=== PATIENT | male | born 1995 | race Caucasian/White ===

== ENCOUNTER 2022-04-08 05:54 | Inpatient (IN) | payer SELFPAY ==
[2022-04-08] MEDS ORDERED: NALOXONE HCL 2 MG/2 ML VIAL ONE (06:04)
[2022-04-08] MEDS ORDERED: propofoL 1,000 MG/100 ML VIAL IV ONE (06:07)
[2022-04-08] MEDS ORDERED: NA CHLORIDE 0.9% 1,000 ML ONE (06:07)
[2022-04-08] MEDS ORDERED: VECURONIUM 10 MG/VIAL IV ONE (06:07)
[2022-04-08 06:36] LABS: Arterial Blood Carboxyhemoglob 1.5 % (0-1.5); Blood Gas Oxyhemoglobin 96.4 % (94-97)
--- NOTE | 2022-04-08 06:43 | ER ---
Nurse's Notes [facility] Name: Jerry Mcelroy Age: 28 yrs Sex: Male : 10/05/1993 Arrival Date: 04/08/2022 Time: 06:00 Bed 2 Private MD: Diagnosis: Acute respiratory failure;Hypoxemia;Abuse of other non-psychoactive substances-OVERDOSE;Hypokalemia;Adverse effect of benzodiazepines;Adverse effect of amphetamines Presentation: 04/08 06:06 Chief complaint: pt brought by POV unresponsive, agonal respirations, cyanotic, person bb who brought him states pt overdosed on either heroin or fentanyl. Coronavirus screen: unable to determine. Ebola Screen: Unable to complete the Ebola screening because: Patient is unresponsive. 06:06 Method Of Arrival: Other bb 06:08 Initial Sepsis Screen: Does the patient meet any 2 criteria? No. Patient's initial bb sepsis screen is negative. Does the patient have a suspected source of infection? No. Patient's initial sepsis screen is negative. Risk Assessment: Do you want to hurt yourself or someone else? Unable to obtain. Onset of symptoms is unknown. 06:08 Acuity: WILLIAM 1 bb Triage Assessment: 06:00 General: Appears distressed. as6 06:00 Pain: Unable to use pain scale. Patient is unresponsive. as6 Historical: - Allergies: 07:25 Unable to obtain; as6 - Home Meds: 07:25 Unable to obtain [Active]; as6 - PMHx: 07:25 Unable to Obtain; as6 - PSHx: 07:25 Unable to Obtain; as6 - Immunization history:: Adult Immunizations unknown. - Family history:: not pertinent. - Social history:: Smoking status: unknown. Screenin:37 Abuse screen: Denies threats or abuse. Denies injuries from another. Nutritional as6 screening: No deficits noted. Tuberculosis screening: No symptoms or risk factors identified. Fall Risk None identified. Assessment: 06:00 General: Behavior is unresponsive. Neuro: Level of Consciousness is unresponsive. as6 Respiratory: Respiratory pattern is agonal. Respiratory:. Derm: Skin is pale. Derm: Skin is diaphoretic, Skin is. 06:22 General: during central line and Yee placement pt became restless and combative. vec as6 given. 07:30 General: Behavior is Sedated and intubated. Neuro: Morse Agitation-Sedation Scale jl7 (RASS): -2 Light sedation Level of Consciousness is sedated. Pupils are Pupil Size: 2 mm non-reactive. Cardiovascular: Heart tones S1 S2 present Patient's skin is warm and dry. Rhythm is sinus rhythm. Respiratory: Airway via oral intubation Ventilator assessment: ET Tube: 7.5 23 cm at gum line. Ventilator Mode: Assist Control (AC) Tidal Volume: 500 Respiratory Rate: 16 FiO2: 28% PEEP: 5 HOB > 30 degrees. Breath sounds are clear bilaterally. GI: Oral gastric tube in place, to suction. : Yee in place Urine is cloudy. Derm: Skin is dry, Skin is pink, Skin temperature is cool. 08:00 Reassessment: No changes from previously documented assessment. Neuro: Morse jl7 Agitation-Sedation Scale (RASS): -2 Light sedation. 09:00 Reassessment: No changes from previously documented assessment. jl7 09:30 Reassessment: Dr. Weston at bedside, reports orders will be put in for ICU admission jl7 once he goes up. 11:00 Neuro: Morse Agitation-Sedation Scale (RASS): -2 Light sedation. jl7 Vital Signs: 06:00 Pulse 114; Resp 4; Pulse Ox 55% on R/A; bb 06:08 BP 141 / 90; Pulse 121; Resp 27 A; Pulse Ox 100% on 15% BVM; bb 06:30 BP 125 / 75; Pulse 99; Resp 16 A; Temp 97.2(C); Pulse Ox 100% on 70% FiO2 ETT vent; as6 06:37 Weight 99.79 kg; as6 07:10 BP 113 / 70; Pulse 83; Resp 16 A; Pulse Ox 100% on ETT vent; jl7 07:30 BP 101 / 68; Pulse 85; Resp 16; Temp 95.2; Pulse Ox 100% on ETT vent; jl7 07:45 BP 104 / 65; Pulse 84; Resp 16; Pulse Ox 99% ; jl7 08:00 BP 102 / 66; Pulse 81; Resp 16 A; Temp 94.8(C); Pulse Ox 99% on 28% FiO2 ETT vent; jl7 08:15 BP 101 / 66; Pulse 76; Resp 16; Pulse Ox 99% ; jl7 08:30 BP 103 / 68; Pulse 74; Resp 16; Pulse Ox 97% ; jl7 08:45 BP 101 / 69; Pulse 74; Resp 16; Pulse Ox 97% ; jl7 09:00 BP 101 / 66; Pulse 74; Resp 16 A; Temp 94.7(C); Pulse Ox 97% on 28% FiO2 ETT vent; jl7 09:15 BP 104 / 67; Pulse 72; Resp 16; Pulse Ox 97% ; jl7 09:30 BP 103 / 68; Pulse 72; Resp 16; Pulse Ox 97% ; jl7 09:45 BP 104 / 67; Pulse 72; Resp 16; Pulse Ox 97% ; jl7 10:00 BP 103 / 69; Pulse 72; Resp 16 A; Temp 95(C); Pulse Ox 97% on 28% FiO2 ETT vent; jl7 10:15 BP 102 / 68; Pulse 71; Resp 16; Pulse Ox 97% ; jl7 10:30 BP 105 / 71; Pulse 70; Resp 16; Pulse Ox 98% ; jl7 10:45 BP 104 / 71; Pulse 70; Resp 16; Pulse Ox 98% ; jl7 11:00 BP 105 / 71; Pulse 72; Resp 16 S; Temp 95.5(C); Pulse Ox 99% on 28% FiO2 ETT vent; jl7 ED Course: 05:58 Inserted saline lock: 18 gauge in right antecubital area, using aseptic technique. as6 ,using aseptic technique. By Mariella Bartlett RN. 05:59 Assisted provider with intubation using 7.5 mm ETT via oral route. ET tube secured at bb 24cm at the lips. Intubated by Albert Rodas MD Placement verified by CO2 detector w/ + color change, auscultating bilateral breath sounds, CXR, Patient tolerated well. 06:00 Patient arrived in ED. wm 06:00 Arm band placed on Patient placed in an exam room, on a stretcher, on oxygen, on bb animal anatomist, on pulse oximetry, Dr Rodas at bedside for intubation. 06:09 Triage completed. bb 06:23 Sheldon Swann, RENEA is Primary Nurse. as6 06:26 Albert Rodas MD is Attending Physician. renetta 06:27 Yee cath inserted, using sterile technique, 18 Fr., by ky, balloon inflated, to as6 gravity drainage, urine specimen collected. 06:27 Assisted provider with central line placement. Set up central line tray. Triple lumen as6 line placed in right femoral. Line placed by Albert Rodas MD Placement verified by blood return, Dressed with Tegaderm, Blood was collected. 06:37 Placed in gown. Bed in low position. Call light in reach. Side rails up X2. Client as6 placed on continuous cardiac and pulse oximetry monitoring. NIBP monitoring applied. 06:41 Laxmi Junior MD is Hospitalizing Provider. renetta 06:51 XRAY Chest (1 view) In Process Unspecified. EDMS 07:00 Initial lab(s) drawn, by ED staff, sent to lab. jl7 07:07 Andrew Weston MD is Hospitalizing Provider. renetta 07:12 CT Head Brain wo Cont In Process Unspecified. EDMS 08:30 Thermoregulation: Ann blanket applied. jl7 08:30 COVID swab sent to lab. jl7 11:25 Patient admitted, IV remains in place. intact, No redness/swelling at site. 7 Administered Medications: 05:58 Drug: NARcan (naloxone) 2 mg Route: IVP; Site: right antecubital; 06:20 Drug: NS 0.9% 1000 ml Route: IV; Rate: 1 bolus; Site: right antecubital; as6 07:00 Follow up: Response: No adverse reaction; IV Status: Completed infusion; IV Intake: jl7 1000ml 06:23 Drug: VecuroNIUM 10 mg Route: IVP; Site: right antecubital; as6 06:25 Drug: Propofol 5 mcg/kg/min {Note: starting rate 20.} Route: IV; Rate: calculated rate; as6 Site: right antecubital; 07:00 Follow up: Response: RASS: Light sedation (-2) 7 11:04 Follow up: Response: RASS: Light sedation (-2); IV Status: Infusion continued upon 7 admission 07:39 Drug: Zosyn (piperacillin-tazobactam) 3.375 grams Route: IVPB; Infused Over: 60 mins; 7 Site: right femoral; 08:39 Follow up: IV Status: Completed infusion; IV Intake: 100ml 08:31 Drug: Potassium Chloride 20 mEq Route: IV; Rate: per protocol; Site: right femoral; jl7 10:30 Follow up: Response: No adverse reaction; IV Status: Completed infusion jl7 08:31 Drug: Potassium Chloride 20 mEq Route: IV; Rate: per protocol; Site: right femoral; jl7 08:31 Drug: NS 0.9% with KCl 20 mEq/L 1000 ml Route: IV; Rate: 125 ml/hr; Site: right femoral;jl7 11:03 Follow up: Response: No adverse reaction; IV Status: Infusion continued upon admission jl7 Medication: 08:53 VIS not applicable for this client. jl7 Intake: 07:00 IV: 1000ml; Total: 1000ml. jl7 08:39 IV: 100ml; Total: 1100ml. jl7 Outcome: 06:42 Decision to Hospitalize by Provider. renetta 11:24 Admitted to ICU accompanied by nurse, via stretcher, room 1, with oxygen, on monitor, jl7 with chart, Report called to RENEA Dick 11:24 critical 11:24 Discharge instructions given to Pt intubated and sedated 12:03 Patient left the ED. jl7 Signatures: Dispatcher [employer] EDMS Albert Rodas MD MD cha Ballard, Brenda, RN RN Carly Harding RN RN Afsaneh Leo Ashby, RN RN as6 Corrections: (The following items were deleted from the chart) 07:23 05:58 Inserted saline lock: 20 gauge in right antecubital area, using aseptic as6 technique. ,using aseptic technique. By Mariella frankel
--- NOTE | 2022-04-08 06:43 | EDPHYS ---
Physician Documentation [facility] Name: Jerry Mcelroy Age: 28 yrs Sex: Male : 10/05/1993 Arrival Date: 04/08/2022 Time: 06:00 Bed 2 Private MD: ED Physician Albert Rodas HPI: 04/08 06:37 This 28 yrs old Male presents to ER via Other with complaints of UNRESPONSIVE renetta , OD. 06:37 OVERDOSE. The patient has experienced syncope, lost consciousness. Onset: The renetta symptoms/episode began/occurred just prior to arrival. Duration: This was a single episode, that is still ongoing. Context: the episode(s) was witnessed, by a friend. Associated injury: The patient did not suffer any apparent associated injury. Associated signs and symptoms: Pertinent positives: APNEA. Current symptoms: UNRESPONSIVE. Severity of symptoms: At their worst the symptoms were incapacitating just prior to arrival, in the emergency department the symptoms UNRESPONSIVE , SATS 50 , PULSE WEAK, CYANOSIS. Historical: - Allergies: 07:25 Unable to obtain; as6 - Home Meds: 07:25 Unable to obtain [Active]; as6 - PMHx: 07:25 Unable to Obtain; as6 - PSHx: 07:25 Unable to Obtain; as6 - Immunization history:: Adult Immunizations unknown. - Family history:: not pertinent. - Social history:: Smoking status: unknown. ROS: 06:37 Unable to obtain ROS due to obtunded state. renetta Exam: 06:37 Constitutional: This is a well developed, well nourished patient who is awake, alert, renetta and in no acute distress. Head/Face: Normocephalic, atraumatic. 06:37 Cardiovascular: Rate: tachycardic, actual rate is 120 bpm, Rhythm: regular, Pulses: Pulses are 3+ in bilateral radial, brachial, femoral, popliteal, posterior tibial and and dorsalis pedis arteries.. Heart sounds: normal, Edema: is not appreciated, JVD: is not appreciated. 06:37 Neuro: Orientation: unable to test, Mentation: unable to test, Memory: unable to test, Cranial nerves: unable to test, Cerebellar function: unable to test, Motor: unable to test, Sensation: unable to test, Gait: not tested. Babinski testing is not performed, seizure activity, is not displayed by the patient. 06:52 ECG was reviewed by the Attending Physician. renetta Vital Signs: 06:00 Pulse 114; Resp 4; Pulse Ox 55% on R/A; bb 06:08 BP 141 / 90; Pulse 121; Resp 27 A; Pulse Ox 100% on 15% BVM; bb 06:30 BP 125 / 75; Pulse 99; Resp 16 A; Temp 97.2(C); Pulse Ox 100% on 70% FiO2 ETT vent; as6 06:37 Weight 99.79 kg; as6 07:10 BP 113 / 70; Pulse 83; Resp 16 A; Pulse Ox 100% on ETT vent; jl7 07:30 BP 101 / 68; Pulse 85; Resp 16; Temp 95.2; Pulse Ox 100% on ETT vent; jl7 07:45 BP 104 / 65; Pulse 84; Resp 16; Pulse Ox 99% ; jl7 08:00 BP 102 / 66; Pulse 81; Resp 16 A; Temp 94.8(C); Pulse Ox 99% on 28% FiO2 ETT vent; jl7 08:15 BP 101 / 66; Pulse 76; Resp 16; Pulse Ox 99% ; jl7 08:30 BP 103 / 68; Pulse 74; Resp 16; Pulse Ox 97% ; jl7 08:45 BP 101 / 69; Pulse 74; Resp 16; Pulse Ox 97% ; jl7 09:00 BP 101 / 66; Pulse 74; Resp 16 A; Temp 94.7(C); Pulse Ox 97% on 28% FiO2 ETT vent; jl7 09:15 BP 104 / 67; Pulse 72; Resp 16; Pulse Ox 97% ; jl7 09:30 BP 103 / 68; Pulse 72; Resp 16; Pulse Ox 97% ; jl7 09:45 BP 104 / 67; Pulse 72; Resp 16; Pulse Ox 97% ; jl7 10:00 BP 103 / 69; Pulse 72; Resp 16 A; Temp 95(C); Pulse Ox 97% on 28% FiO2 ETT vent; jl7 10:15 BP 102 / 68; Pulse 71; Resp 16; Pulse Ox 97% ; jl7 10:30 BP 105 / 71; Pulse 70; Resp 16; Pulse Ox 98% ; jl7 10:45 BP 104 / 71; Pulse 70; Resp 16; Pulse Ox 98% ; jl7 11:00 BP 105 / 71; Pulse 72; Resp 16 S; Temp 95.5(C); Pulse Ox 99% on 28% FiO2 ETT vent; jl7 Procedures: 06:46 Central Line: the site was prepped with Betadine, in sterile fashion, a triple lumen renetta catheter was inserted, in the right in 3 attempts. placement was verified, by blood return, the site was dressed with Tegaderm, the patient tolerated the procedure, well. 06:47 Intubation: Ventilated with 100% NRB prior to procedure. Intubated orally using # 4 renetta Miladis blade with 7.5 mm ETT. was successful on first attempt. Ventilated with Ambu bag. Cricoid pressure applied during procedure. Tube secured at right side of mouth measured 23 cm at lip. Placement verified by CXR, CO2 detector with (+) color change, auscultating bilateral breath sounds, O2 saturation after procedure was 100 %. Patient tolerated well. MDM: 06:26 Patient medically screened. renetta 06:46 Differential Diagnosis altered mental status, sepsis. Differential Diagnosis: cardiac renetta arrhythmia, cerebrovascular accident, drug effect, seizure, sepsis, transient ischemic attack, vasovagal episode. Data reviewed: vital signs, nurses notes, lab test result(s), EKG, radiologic studies, CT scan, plain films. Data interpreted: ingot supervisor: rate is 121 beats/min, rhythm is regular, Pulse oximetry: on room air is 100 %. Test interpretation: by ED physician or midlevel provider: ECG, plain radiologic studies. Counseling: I had a detailed discussion with the patient and/or guardian regarding: the historical points, exam findings, and any diagnostic results supporting the discharge/admit diagnosis, lab results, radiology results, the need for further work-up and treatment in the hospital. 04/08 06:23 Order name: Acetaminophen; Complete Time: 07:58 04/08 06:23 Order name: CBC with Diff; Complete Time: 07:32 04/08 06:23 Order name: ETOH Level; Complete Time: 07:58 04/08 06:23 Order name: PT-INR; Complete Time: 07:32 04/08 06:23 Order name: Ptt, Activated; Complete Time: 07:32 04/08 06:23 Order name: Salicylate; Complete Time: 08:40 04/08 06:23 Order name: Urine Drug Screen; Complete Time: 07:32 as6 04/08 06:23 Order name: Blood Culture Adult (2) as6 04/08 06:23 Order name: CBC with Diff as6 04/08 06:23 Order name: CMP; Complete Time: 07:58 as6 04/08 06:23 Order name: Lactate; Complete Time: 07:58 as6 04/08 06:23 Order name: Protime (+inr) as6 04/08 06:23 Order name: Ptt, Activated as6 04/08 06:31 Order name: Magnesium; Complete Time: 08:40 [facility] 04/08 06:31 Order name: NT PRO-BNP; Complete Time: 08:40 [facility] 04/08 06:31 Order name: Troponin HS; Complete Time: 08:40 [facility] 04/08 06:31 Order name: XRAY Chest (1 view); Complete Time: 07:32 [facility] 04/08 06:31 Order name: ABG; Complete Time: 06:52 [facility] 04/08 06:31 Order name: SARS-COV-2 RT PCR (Document "Date of Onset" if Symptomatic) [facility] 04/08 06:31 Order name: CT Head Brain wo Cont; Complete Time: 07:32 [facility] 04/08 06:34 Order name: ABG Arterial Blood Gas EDMS 04/08 06:39 Order name: Bilirubin Direct; Complete Time: 07:58 EDMS 04/08 07:53 Order name: ABG Arterial Blood Gas EDMS 04/08 07:53 Order name: ABG Arterial Blood Gas EDMS 04/08 07:53 Order name: Chest Single View EDMS 04/08 07:53 Order name: Chest Single View EDMS 04/08 11:11 Order name: Lactate Sepsis 2 HR Follow-up EDMS 04/08 06:23 Order name: EKG; Complete Time: 06:24 as6 04/08 06:23 Order name: EKG - Nurse/Tech; Complete Time: 06:57 as6 04/08 06:23 Order name: IV Saline Lock; Complete Time: 06:57 as04/08 06:23 Order name: Labs collected and sent; Complete Time: 06:57 as6 04/08 06:23 Order name: Urine Dipstick-Ancillary (obtain specimen); Complete Time: 07:27 04/08 06:23 Order name: Accucheck; Complete Time: 06:56 04/08 06:23 Order name: Cardiac monitoring; Complete Time: 06:35 04/08 06:23 Order name: Cath; Complete Time: 06:35 04/08 06:23 Order name: EKG - Nurse/Tech; Complete Time: 06:56 04/08 06:23 Order name: IV Saline Lock - Large Bore; Complete Time: 06:35 04/08 06:23 Order name: Labs collected and sent; Complete Time: 06:35 04/08 06:23 Order name: O2 Per Protocol; Complete Time: 06:35 04/08 06:23 Order name: O2 Sat Monitoring; Complete Time: 06:35 04/08 07:53 Order name: Respiratory Therapy Consult EDMS EC:52 Rate is 92 beats/min. Rhythm is regular. QRS [place] is Normal. IN interval is normal. QRS renetta interval is normal. QT interval is prolonged at 396 msec. No Q waves. T waves are Normal. No ST changes noted. Clinical impression: NSR w/ Non-specific ST/T Changes and No evidence of ischemia. Interpreted by me. Reviewed by me. Administered Medications: 05:58 Drug: NARcan (naloxone) 2 mg Route: IVP; Site: right antecubital; 06:20 Drug: NS 0.9% 1000 ml Route: IV; Rate: 1 bolus; Site: right antecubital; as6 07:00 Follow up: Response: No adverse reaction; IV Status: Completed infusion; IV Intake: jl7 1000ml 06:23 Drug: VecuroNIUM 10 mg Route: IVP; Site: right antecubital; as6 06:25 Drug: Propofol 5 mcg/kg/min {Note: starting rate 20.} Route: IV; Rate: calculated rate; as6 Site: right antecubital; 07:00 Follow up: Response: RASS: Light sedation (-2) jl7 11:04 Follow up: Response: RASS: Light sedation (-2); IV Status: Infusion continued upon jl7 admission 07:39 Drug: Zosyn (piperacillin-tazobactam) 3.375 grams Route: IVPB; Infused Over: 60 mins; 7 Site: right femoral; 08:39 Follow up: IV Status: Completed infusion; IV Intake: 100ml jl7 08:31 Drug: Potassium Chloride 20 mEq Route: IV; Rate: per protocol; Site: right femoral; jl7 10:30 Follow up: Response: No adverse reaction; IV Status: Completed infusion jl7 08:31 Drug: Potassium Chloride 20 mEq Route: IV; Rate: per protocol; Site: right femoral; jl7 08:31 Drug: NS 0.9% with KCl 20 mEq/L 1000 ml Route: IV; Rate: 125 ml/hr; Site: right femoral;jl7 11:03 Follow up: Response: No adverse reaction; IV Status: Infusion continued upon admission jl7 Disposition Summary: 04/08/22 06:42 Hospitalization Ordered Hospitalization Status: Inpatient Admission renetta Location: Intensive Care Unit renetta Condition: Guarded renetta Problem: new renetta Symptoms: have improved renetta Bed/Room Type: Standard renetta Provider: Andrew Weston(04/08/22 07:07) renetta Room Assignment: 1-(04/08/22 10:14) eb Diagnosis - Acute respiratory failure renetta - Hypoxemia renetta - Abuse of other non-psychoactive substances - OVERDOSE renetta - Hypokalemia renetta - Adverse effect of benzodiazepines renetta - Adverse effect of amphetamines renetta Forms: - Medication Reconciliation Form renetta - SBAR form renetta Signatures: Dispatcher [employer] EDAlbert Jeffries MD MD cha Ballard, Brenda, RN RN Carly Harding RN RN jl7 Sheryl Rai Ashby, RN RN as6 Corrections: (The following items were deleted from the chart) 06:25 06:24 BASIC METABOLIC PANEL+C.LAB.BRZ ordered. EDMS EDMS 06:33 06:32 BASIC METABOLIC PANEL+C.LAB.BRZ ordered. EDMS EDMS 06:39 06:24 HEPATIC FUNCTION+C.LAB.BRZ ordered. EDMS EDMS 06:56 06:23 Suicide Screening ([place]) ordered. as6 as 07:07 06:42 Laxmi Junior cha [facility] 10:14 06:42 renetta gutierrez
[2022-04-08] MEDS ORDERED: PIPERACIL/TAZO 3.375 GM VIAL IV ONE (06:47)
[2022-04-08] MEDS ORDERED: NA CHLORIDE 0.9% 100 ML ONE (06:47)
[2022-04-08 06:59] LABS: Barbiturates NEGATIVE (NEGATIVE); Benzodiazepines POSITIVE (NEGATIVE); Cocaine NEGATIVE (NEGATIVE); METHAMPHETAM POSITIVE (NEGATIVE); Methadone NEGATIVE (NEGATIVE); Opiates POSITIVE (NEGATIVE); Phencyclidine NEGATIVE (NEGATIVE); THC Cannibis POSITIVE (NEGATIVE)
[2022-04-08 07:13] LABS: Absolute Lymphocytes (CBC) 0.7 K/uL (0.7-4.9); Hematocrit 37.2 % (39.6-49.0); Lymphocytes % 21.7 % (15.3-44.8); MCV 94.3 fL (80-100); MPV 7.9 fL (7.6-11.3); RBC Red Blood Cell Count 3.94 M/uL (4.33-5.43)
--- NOTE | 2022-04-08 07:24 | RAD REPORT ---
EXAM DESCRIPTION: CT - Head Brain Wo Cont - 04/08/2022 7:10 am CLINICAL HISTORY: Mental status change, unknown cause COMPARISON: No comparisons TECHNIQUE: Axial 5 mm thick images of the head were obtained without IV contrast. All CT scans are performed using dose optimization technique as appropriate and may include automated exposure control or mA/KV adjustment according to patient size. FINDINGS: No intracranial hemorrhage, mass, edema or shift of mid-line structures. No acute infarcti on changes seen. No abnormal extra-axial fluid collections. Ventricles are normal. Physiologic calcif ications are present. Mastoid air cells and visualized portions of the paranasal sinuses are clear. No acute bony findings. IMPRESSION: Negative non-contrast CT head examination.
--- NOTE | 2022-04-08 07:25 | RAD REPORT ---
EXAM DESCRIPTION: RAD - Chest Single View - 04/08/2022 6:49 am CLINICAL HISTORY: COUGHoverdose, shortness of breath, altered mental status COMPARISON: None TECHNIQUE: AP portable chest image was obtained 04/08/2022 6:49 am in supine position. FINDINGS: Endotracheal tube is in good position mid aortic arch level 3 cm above the cynthia. NG/OG t ube is curled in the stomach. No pulmonary edema, aspiration pneumonia or acute lung parenchymal process seen. Heart and vasculature are normal. No measurable pleural effusion and no pneumothorax. No acute bony a bnormality seen. No acute aortic findings suspected. IMPRESSION: No acute cardiopulmonary process. ET tube and NG tube are in good position.
[2022-04-08 07:30] LABS: Protime INR 1.18
[2022-04-08 07:44] LABS: AST/SGOT 203 U/L (15-37); Albumin 3.1 g/dL (3.4-5.0); Alkaline Phosphatase 71 U/L (45-117); BUN Blood Urea Nitrogen 13 mg/dL (7-18); Bicarbonate 24 mmol/L (21-32); Bilirubin Direct 0.2 mg/dL (0-0.2); Bilirubin Total 0.4 mg/dL (0.2-1.0); Glomerular Filtration Rate 72 ml/min (=/>90); Glucose Level 235 mg/dL (74-106); Sodium Level 138 mmol/L (136-145)
[2022-04-08 07:46] LABS: ALT/SGPT 308 U/L (12-78); Potassium 2.7 mmol/L (3.5-5.1)
[2022-04-08] MEDS ORDERED: NA CHLORIDE 0.9% 250 ML IV PRN (07:49)
[2022-04-08 08:01] LABS: Magnesium 2.3 mg/dL (1.8-2.4); Troponin High Sensitivity 6.9 pg/mL (<58.9)
[2022-04-08] MEDS ORDERED: NS KCL 20MEQ 1,000 ML IV ONE (08:12)
[2022-04-08] MEDS ORDERED: KCL 20 MEQ/100 mL IVPB 200 ML IV ONE (08:13)
[2022-04-08] MEDS: propofoL 1,000 MG/100 ML VIAL IV PRN ×2 (11:47→12:05)
[2022-04-08] MEDS: HALOPERIDOL LACT 5 MG/ML INJ IV PRN ×2 (12:19→19:35)
[2022-04-08] MEDS: LORazepam 2 MG/ML VIAL IV PRN ×4 (12:19→22:15)
--- NOTE | 2022-04-08 13:03 | RAD REPORT ---
EXAM DESCRIPTION: RAD - Chest Single View - 04/08/2022 12:40 pm CLINICAL HISTORY: ET TUBE PLACEMENT COMPARISON: Portable April 08 TECHNIQUE: AP portable chest image was obtained 04/08/2022 12:40 pm . FINDINGS: Endotracheal tube mid aortic arch level, good positioning. NG/OG tube remains curled in th e stomach. No pulmonary edema, aspiration pneumonia or acute lung parenchymal process. Heart and vasculature are normal. No measurable pleural effusion and no pneumothorax. No acute bony abnormality seen. Resuscit ation paddle overlies the upper left chest. IMPRESSION: No pulmonary edema, aspiration pneumonia or other acute lung parenchymal process. Endotracheal tube and NG/OG tube remain in good position.
[2022-04-08] MEDS: NA CHLORIDE 0.9% 1,000 ML IV SCH ×2 (13:58→21:00)
[2022-04-08 17:31] LABS: Potassium 3.5 mmol/L (3.5-5.1)
[2022-04-08] MEDS ORDERED: KCL 20 MEQ/100 mL IVPB 20 MEQ/100 ML BAG IV SCH (19:00)
[2022-04-09] MEDS: NA CHLORIDE 0.9% 1,000 ML IV SCH ×2 (01:04→10:14)
[2022-04-09] MEDS: LORazepam 2 MG/ML VIAL IV PRN ×2 (02:10→04:20)
[2022-04-09] MEDS: HALOPERIDOL LACT 5 MG/ML INJ IV PRN (05:00)
[2022-04-09 05:21] LABS: Absolute Lymphocytes (CBC) 2.2 K/uL (0.7-4.9); Hematocrit 39.1 % (39.6-49.0); Lymphocytes % 22.7 % (15.3-44.8); MCV 93.3 fL (80-100); MPV 8.1 fL (7.6-11.3); RBC Red Blood Cell Count 4.19 M/uL (4.33-5.43)
[2022-04-09 05:33] LABS: Bilirubin Direct 0.2 mg/dL (0-0.2); Bilirubin Total 0.5 mg/dL (0.2-1.0); Magnesium 2.3 mg/dL (1.8-2.4); Phosphorus 1.8 mg/dL (2.5-4.9); Potassium 3.3 mmol/L (3.5-5.1); Protein, Total 6.3 g/dL (6.4-8.2)
--- NOTE | 2022-04-09 07:13 | RAD REPORT ---
EXAM DESCRIPTION: RAD - Chest Single View - 04/09/2022 6:16 am CLINICAL HISTORY: resp failure COMPARISON: April 08 TECHNIQUE: AP portable chest image was obtained 04/09/2022 6:16 am . FINDINGS: Endotracheal tube tip is top of the aortic arch 4-5 cm above the cynthia. Positioning is st able. NG tube extends below the diaphragm, off the field of view. Lung volumes are low. There is some minimal stranding in the left lung base. This is not substantiall y different from prior imaging but can be monitored for developing infiltrate. Resuscitation paddles overlie the chest. Heart size is normal. No measurable pleural effusion and no pneumothorax. IMPRESSION: Stable positioning of the ET tube and NG tube. Low lung volume examination shows accentuated basilar lung markings. This is probably atelectasis but can be monitored for developing infiltrate.
--- NOTE | 2022-04-09 07:50 | P.HP ---
Certification for Inpatient With expected LOS: >2 Midnights Practitioner: I am a practitioner with admitting privileges, knowledge of patient current condition, hospital course, and medical plan of care. Services: Services provided to patient in accordance with Admission requirements found in Title 42 Section 412.3 of the Code of Federal Regulations Patient History Date of Service: 04/09/22 Reason for admission: Over dose History of Present Illness: Age 26 admitted withOD. No relatives or history available OA. Admitted as DALIA WALTERS. PT on vent on propofol Allergies No Known Allergies Allergy (Verified 04/08/22 21:25) Home Medications: Atomoxetine HCl [Strattera] 40 mg PO BID 04/08/22 Benadryl/Maalox/Lidocaine Oral Suspension 10 ml PO TIDP PRN 04/08/22 Benztropine Mesylate [Cogentin] 0.5 mg PO BIDP PRN 04/08/22 Diphenhydramine HCl [Banophen] 25 mg PO BEDTIME 04/08/22 OLANZapine [Zyprexa Zydis] 10 mg PO BEDTIME 04/08/22 Ondansetron [Zofran] 4 mg PO Q8HP PRN 04/08/22 Venlafaxine HCl *Xr* [Effexor XR] 2 tab PO DAILY 04/08/22 - Past Medical/Surgical History Has patient received pneumonia vaccine in the past: No Diabetic: No -: Hep C -: Cirrhosis of the liver -: Bipolar d/o -: schizophrenia -: drug abuse - Social History Smoking Status: Current some day smoker Alcohol use: Yes CD- Drugs: Yes Caffeine use: Yes Place of Residence: Home Review of Systems is unable to be obtained Physical Examination - Vital Signs Temperature: 99.1 F Blood Pressure: 124/71 Pulse: 91 Respirations: 16 Pulse Ox (%): 100 - Physical Exam General: Unresponsive Neck: Supple Respiratory: Clear to auscultation bilaterally Cardiovascular: No edema, Normal S1 S2 Gastrointestinal: Normal bowel sounds, Soft and benign - Studies Laboratory Data (last 24 hrs) 04/08/22 06:54: Magnesium 2.3 04/08/22 06:54: Sodium 138, Potassium 2.7 L*, BUN 13, Creatinine 1.35 H, Glucose 235 H, Total Bilirubin 0.4, AST 203 H, ALT 308 H*, Alkaline Phosphatase 71 Assessment and Plan - Problems (Diagnosis) (1) Overdose of opiate or related narcotic Current Visit: Yes Status: Acute Plan: AGe 26 AW OD of narcotics. PT has psychiatic problems/ cw supporive tx . AW resp failure hypercapenic, renal failure and abnormal LFT. / Toxscreen pos for multiple durgs. CW IV fluids vent support poss extubation am hypokalemia that will be addressed Qualifiers: Encounter type: initial encounter Discharge Plan: Psychiatry Plan to discharge in: 48 Hours - Advance Directives Does patient have a Living Will: No Does patient have a Durable POA for Healthcare: Yes
--- NOTE | 2022-04-09 07:58 | EKG ---
Test Date: 2022-04-08 Test Time: 06:45:16 Child Support Case Officer: MEASUREMENT RESULTS: Intervals: Rate: 92 MT: 148 QRSD: 116 QT: 396 QTc: 489 [place]: P: 77 MT: 148 QRS: 90 T: 54 INTERPRETIVE STATEMENTS: Sinus rhythm with premature atrial complexes Rightward axis Prolonged QT Abnormal ECG No previous ECG available for comparison Electronically Signed On 04-09-22 07:55:33 CDT by Sajan Rosen
[2022-04-09] MEDS: ENOXAPARIN 40 MG/0.4 ML SQ SCH (08:29)
[2022-04-09] MEDS ORDERED: VANCOMYCIN 1 GM in NA CHLORIDE 0.9% 250 ML IVPB SCH (09:34)
[2022-04-09] MEDS: VANCOMYCIN 1.75 GM in NA CHLORIDE 0.9% 500 ML IVPB SCH ×2 (10:11→21:27)
--- NOTE | 2022-04-09 12:26 | P.PN ---
Subjective Date of Service: 04/09/22 Chief Complaint: Over dose Subjective: Improving (Patient extubated unresponsive) Review of Systems is unable to be obtained Physical Examination - Vital Signs Temperature: 99 F Blood Pressure: 125/77 Pulse: 103 Respirations: 17 Pulse Ox (%): 95 - Physical Exam General: Unresponsive Respiratory: Clear to auscultation bilaterally Cardiovascular: No edema, Regular rate/rhythm - Studies Microbiology Data (last 24 hrs): 04/08/22 06:48 Blood - Blood Blood Culture Gram Stain - Final Assessment And Plan - Current Problems (Diagnosis) (1) Overdose of opiate or related narcotic Current Visit: Yes Status: Acute Plan: Patient extubated today vital signs are stable and needed psychiatric evaluation there is no contact information in the chart we will request the nursing staff to obtain 1 Qualifiers: Encounter type: initial encounter (2) Renal failure Current Visit: Yes Status: Acute Plan: Renal function has improved significantly replace potassium Qualifiers: Renal failure chronicity: acute (3) Gram-positive cocci bacteremia Current Visit: Yes Status: Acute (4) Suicidal behavior with attempted self-injury Current Visit: Yes Status: Acute Plan: Mother Ms. Erazo he has had a long tract history of suicidal attempts multiple personality disorder schizophrenia bipolar has been in and out of group home mental institutions will consult social media editor for possible transfer to [facility] - Plan Gram-positive cocci bacteremia we will start on vancomycin await positive ID
[2022-04-09] MEDS ORDERED: ONDANSETRON 4 MG (ODT) TAB PO PRN (12:38)
[2022-04-09] MEDS ORDERED: BENZTROPINE 1 MG TAB PO PRN (12:53)
[2022-04-09] MEDS: NS KCL 40MEQ 40 MEQ/1,000 ML BAG IV SCH ×2 (13:18→22:36)
--- NOTE | 2022-04-09 20:03 | P.PN ---
Date of Service: 04/10/22 Subjective Subjective: Patient extubated. Doing well. Will monitor closely. Review of Systems No complaint Physical Examination - Vital Signs reviewed - Physical Exam General: Awake and following commands Respiratory: Clear to auscultation bilaterally Cardiovascular: No edema, Regular rate/rhythm Gastroenterology: Soft, nontender, nondistended Neuro: No focal deficits Assessment And Plan - Current Problems (Diagnosis) (1) Overdose of opiate or related narcotic Current Visit: Yes Status: Acute Qualifiers: Encounter type: initial encounter (2) Renal failure Current Visit: Yes Status: Acute Qualifiers: Renal failure chronicity: acute (3) Gram-positive cocci bacteremia Current Visit: Yes Status: Acute (4) Suicidal behavior with attempted self-injury Current Visit: Yes Status: Acute Plan: 1. Continue antibiotic 2. CT of the chest 3. Continue with gentle hydration 4. Patient denies being suicidal or homicidal. He states he just unintentionally overdosed 5. Outpatient psych eval 6. Bacteremia is a contamination 7. GI DVT prophylaxis
[2022-04-09] MEDS: ATOMOXETINE HCL 40 MG PO SCH (21:00)
[2022-04-09] MEDS: OLANZapine 10 MG TABLET PO SCH (21:27)
[2022-04-10 05:23] LABS: Magnesium 1.9 mg/dL (1.8-2.4); Phosphorus 1.8 mg/dL (2.5-4.9); Potassium 3.3 mmol/L (3.5-5.1)
[2022-04-10 05:43] VITALS: BMI 29.9
[2022-04-10] MEDS ORDERED: POTASSIUM CL SA 10 MEQ TAB PO ONE ×2 (05:47→17:00)
[2022-04-10] MEDS: POTASS/SODIUM PHOSPHATE 1 PKT POWD.PACK PO SCH ×3 (06:01→08:25)
[2022-04-10] MEDS: ENOXAPARIN 40 MG/0.4 ML SQ SCH (08:25)
[2022-04-10] MEDS: ATOMOXETINE HCL 40 MG PO SCH ×2 (08:26→21:00)
[2022-04-10] MEDS ORDERED: VENLAFAXINE HCL XR 75 MG CAP PO SCH (09:00)
[2022-04-10 09:16] LABS: Absolute Lymphocytes (CBC) 2.4 K/uL (0.7-4.9); Hematocrit 37.5 % (39.6-49.0); Lymphocytes % 26.8 % (15.3-44.8); MCV 92.7 fL (80-100); MPV 7.6 fL (7.6-11.3); RBC Red Blood Cell Count 4.05 M/uL (4.33-5.43)
[2022-04-10] MEDS: NS KCL 40MEQ 40 MEQ/1,000 ML BAG IV SCH ×2 (09:17→20:15)
[2022-04-10] MEDS: VANCOMYCIN 1.75 GM in NA CHLORIDE 0.9% 500 ML IVPB SCH ×2 (09:18→23:39)
[2022-04-10 09:55] LABS: Potassium 3.6 mmol/L (3.5-5.1)
--- NOTE | 2022-04-10 11:47 | RAD REPORT ---
EXAM DESCRIPTION: RAD - Chest Single View - 04/10/2022 9:23 am CLINICAL HISTORY: Cough COMPARISON: April 09 2022 FINDINGS: Areas of discoid atelectasis within the lung bases. 2.4 centimeter lucency within inferior left lung base. Upper lobes appear clear. Heart is normal size Normal heart size IMPRESSION: 2.4 centimeter lucency within the left lung base may represent a cavitary lesion or norm al aerated lung surrounded by mild infiltrate. This could be monitored on a subsequent exam
[2022-04-10] MEDS: PIPER TAZO 3.375 GM in NA CHLORIDE 0.9% 100 ML IV SCH (17:35)
[2022-04-10] MEDS: OLANZapine 10 MG TABLET PO SCH (20:15)
[2022-04-10] MEDS ORDERED: ACETAMINOPHEN 500 MG TAB PO PRN (21:47)
[2022-04-11] MEDS: PIPER TAZO 3.375 GM in NA CHLORIDE 0.9% 100 ML IV SCH (01:14)
[2022-04-11 05:25] LABS: Potassium 3.9 mmol/L (3.5-5.1)
--- NOTE | 2022-04-11 07:46 | RAD REPORT ---
EXAM DESCRIPTION: CT - Thorax W/ Con - 04/11/2022 7:32 am CLINICAL HISTORY: Follow up for cavitary lesion/pneumonia COMPARISON: Chest Single View dated 04/10/2022 TECHNIQUE: Dynamically enhanced 5 mm thick images of the chest were obtained during administration o f 100 mL non-ionic IV contrast. All CT scans are performed using dose optimization technique as appropriate and may include automated exposure control or mA/KV adjustment according to patient size. FINDINGS: No cavitary lesion is present. Minimal atelectasis changes are present in each posterior g utter. There is an additional small area of airspace opacification that could be a combination of ate lectasis and/ or infiltrate. No associated solid mass lesions seen. No endobronchial lesions are iden tified. Trace bilateral pleural fluid is present. There is no pneumothorax. No chest wall mass or abnormal a xillary lymphadenopathy. A few small nonspecific sub centimeter mediastinal and hilar lymph nodes are present likely reactive. Aorta and pulmonary arterial tree enhance normally. No cardiomegaly or pericardial effusion. Limited upper abdomen imaging shows diffuse fatty infiltration pattern to the liver. IMPRESSION: No cavitary lesion is present. Patient has bilateral minimal atelectasis and probable minimal infiltrate in the posterior gutter on the left.
--- NOTE | 2022-04-11 07:58 | P.DS ---
Discharge Date: 04/11/22 Disposition: ROUTINE DISCHARGE Discharge Condition: GOOD Reason for Admission: Over dose Brief History of Present Illness: Patient is a 26-year-old gentleman who came to the hospital with respiratory arrest after polysubstance abuse and overdose. Patient has a history of drug use. Patient has a history of multiple psychiatric issues. Patient was admitted to the hospital for further evaluation. Hospital Course: Patient is clinically doing much better. He was extubated. Patient had a questionable finding on his chest x-ray so we did a CT scan which did not reveal any cavitary lesions. Patient just had minimal atelectasis. There was some concern for aspiration so we will continue antibiotic at discharge. Vital Signs/Physical Exam: Temp Pulse Resp BP Pulse Ox 97.1 F 72 24 H 128/82 93 04/11/22 04:00 04/11/22 06:00 04/11/22 06:00 04/11/22 06:00 04/11/22 06:00 General: Alert, In no apparent distress, Oriented x3 Laboratory Data at Discharge: WBC 9.1 K/uL (4.3-10.9) 04/10/22 09:06 Hgb 13.1 g/dL (13.6-17.9) L 04/10/22 09:06 Hct 37.5 % (39.6-49.0) L 04/10/22 09:06 Plt Count 330 K/uL (152-406) 04/10/22 09:06 PT 13.0 SECONDS (9.5-12.5) H 04/08/22 06:54 INR 1.18 04/08/22 06:54 APTT 24.8 SECONDS (24.3-36.9) 04/08/22 06:54 Sodium 140 mmol/L (136-145) 04/11/22 04:31 Potassium 3.9 mmol/L (3.5-5.1) 04/11/22 04:31 BUN 5 mg/dL (7-18) L 04/11/22 04:31 Creatinine 0.70 mg/dL (0.55-1.3) 04/11/22 04:31 Glucose 80 mg/dL (74-106) 04/11/22 04:31 Phosphorus 1.8 mg/dL (2.5-4.9) L 04/10/22 04:26 Magnesium 2.0 mg/dL (1.8-2.4) 04/11/22 04:31 Total Bilirubin 0.5 mg/dL (0.2-1.0) 04/09/22 04:50 AST 140 U/L (15-37) H 04/09/22 04:50 ALT 270 U/L (12-78) H 04/09/22 04:50 Alkaline Phosphatase 74 U/L (45-117) 04/09/22 04:50 Home Medications: Atomoxetine HCl [Strattera] 40 mg PO BID 04/08/22 Benadryl/Maalox/Lidocaine Oral Suspension 10 ml PO TIDP PRN 04/08/22 Benztropine Mesylate [Cogentin] 0.5 mg PO BIDP PRN 04/08/22 Diphenhydramine HCl [Banophen] 25 mg PO BEDTIME 04/08/22 OLANZapine [Zyprexa Zydis] 10 mg PO BEDTIME 04/08/22 Ondansetron [Zofran (Odt)*] 4 mg PO Q8HP PRN 04/08/22 Venlafaxine HCl *Xr* [Effexor XR] 2 tab PO DAILY 04/08/22 Amox/Clavulanate [Augmentin 875-125 Tab] 1 each PO BID #14 tab 04/11/22 predniSONE [Deltasone] 20 mg PO DAILY #5 tab 04/11/22 New Medications: Amox/Clavulanate [Augmentin 875-125 Tab] 1 each PO BID #14 tab predniSONE [Deltasone] 20 mg PO DAILY #5 tab Physician Discharge Instructions: -DC IV and DC home -Follow-up with PCP in 1 to 2 weeks -Follow-up with psychiatrist in 1 to 2 weeks -Please call Dr. Junior at [phone] if any questions regarding hospital stay -Please call nursing station at [phone] if any nursing or medication questions -Return to the emergency room if symptoms worsen Diet: Regular Activity: Ad chavez Followup: Unknown,U [Primary Care Provider] - Time spent managing pt's care (in minutes): 35
[2022-04-11 08:15] VITALS: O2SAT 91
[2022-04-11 10:41] VITALS: BP 153/98; TEMP 98.1
== END 2022-04-11 10:35 | disposition home or self-care (01) | DRG 917 ==
LOC: ER 05:54 → ERHOLD 07:52 → EDBD 07:52 → 3RD-ICU 11:16
PROVIDERS: ADMIT Internal Medicine Sleep Medicine; ATTEND Internal Medicine Sleep Medicine
PROC: 0BH17EZ Insertion of Endotracheal Airway into Trachea, Via Natural or Artificial Opening (ICD-10-PCS; principal; 2022-04-08)
PROC: 5A1945Z Respiratory Ventilation, 24-96 Consecutive Hours (ICD-10-PCS; 2022-04-08)
PROC: 06HM33Z Insertion of Infusion Device into Right Femoral Vein, Percutaneous Approach (ICD-10-PCS; 2022-04-08)
DX: T40.601A Poisoning by unspecified narcotics, accidental (unintentional), initial encounter (principal); J96.02 Acute respiratory failure with hypercapnia; J96.01 Acute respiratory failure with hypoxia; J98.11 Atelectasis; N17.9 Acute kidney failure, unspecified; Y92.9 Unspecified place or not applicable; F19.10 Other psychoactive substance abuse, uncomplicated; T17.908A Unspecified foreign body in respiratory tract, part unspecified causing other injury, initial encounter; F20.9 Schizophrenia, unspecified; F31.9 Bipolar disorder, unspecified; Z86.19 Personal history of other infectious and parasitic diseases; F17.210 Nicotine dependence, cigarettes, uncomplicated; Z78.1 Physical restraint status; Z20.822 Contact with and (suspected) exposure to COVID-19
CPT/HCPCS: 31500; 36415; 51702; 70450; 71045; 71260; 80048; 80053; 80076; 80202; 80307; 80320; 80329; 82248; 82805; 83605; 83735; 83880; 84100; 84132; 84145; 84484; 85025; 85610; 85730; 87040; 87077; 87186; 87205; 93005; 94002; 94003; 99291; J1630; J1650; J2310; J2543; J2704; J3370; J3480; J7030; J7040; Q9967; U0003

== ENCOUNTER 2022-10-07 10:16 | Emergency (ER) | payer OTHER ==
--- OUTSIDE RECORDS SUMMARY | 2022-10-07 10:19 | XMS REPORT | Continuity of Care Document ---
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 02:34:00 Test Item Value Reference Range Interpretation Comments CREATINE KINASE (CK) (test code = 117 UNITS/L 55-170 N CK) [id number] 02:34:00 Test Item Value Reference Range Interpretation Comments MAGNESIUM (test code = MAG) 2.2 MG/DL 1.6-2.3 N [id number] 02:34:00 Test Item Value Reference Range Interpretation Comments TROPONIN-I (test code = TROPI) 0.012 NG/ML 0.012-0.033 N [id number] 02:34:00 Test Item Value Reference Range Interpretation Comments ACETAMINOPHEN (test code = < 10.0 MCG/ML 10-30 L ACET) [id number] 02:34:00 Test Item Value Reference Range Interpretation Comments SALICYLATE (test code = ARIEL) < 1.0 MG/DL <2.0 [id number] 02:34:00 Test Item Value Reference Range Interpretation Comments ALCOHOL (test code = ALC) < 10.0 MG/DL <10 BASIC METABOLIC [id number] 02:34:00 Test Item Value Reference Range Interpretation Comments SODIUM (test code = 136 MMOL/L 137-145 L NA) POTASSIUM (test code 5.4 MMOL/L 3.5-5.1 H = K) CHLORIDE (test code 97 MMOL/L 98-107 L = CL) CARBON DIOXIDE (test 26 MMOL/L 22-30 N code = CO2) GLUCOSE (test code = 72 MG/DL 74-106 L GLU) BLOOD UREA NITROGEN 17 MG/DL 9-20 N (test code = BUN) GLOMERULAR > 60 The Glomerular FILTRATION RATE Filtration R ate is a (test code = GFR) calculated parameterbased on serum Creatinine, pat ient age and sex. GFR va luesless than 60 mL/min/ 1.73 square meters a re indicative ofCh ronic Kidney Disease. Values less than 15 mL/min/1.73squa re meters indicate Kidney failure. The calculation for GFR is based on the CK D-EPI (2020) calculat ion. This formulais race indifferent and is the recommended for meredith for GFRby the Natio nal Kidney Foundati on for Adults.The GFR will not calculate if th e sex is unknown or if thepatient's ag e is <18 years. CREATININE (test 1.20 MG/DL 0.66-1.25 N code = CREAT) CALCIUM (test code = 9.1 MG/DL 8.4-10.2 N CA) HEPATIC FUNCTION [id number] 02:34:00 Test Item Value Reference Range Interpretation Comments TOTAL PROTEIN 8.7 G/DL 6.2-7.6 H [facility] Clinical Diagnostic (test code = has made us howie re of PROT) newinformation regarding the potential i nterference ofEltrombopag ( a bone marrow stimulan t used to treatthrombocyt onmenia and aplastic anemia ) with specific assays on the Vitros 5600 of which Total Protein is one of thoseassays per formed in our lab.Interfe rence testing perform ed at Ortho determined that Eltrombopag does interfere with Vitros Total Protein asfollowsEltrom bopag Interference fo r Vitros Product Total Protein:======= Eltrombopag Max Observed Av g. BiasConcentrati on Concentration Concentration== ==== 2.5 mg/dl 6.0 g/dl +0.41 +0.34 3.5 mg/dl 6.0 g /dl +0.50 +0.45 5 mg/dl 6 .0 g/dl +0.73 +0.65 2.5 mg/dl 8.0 g/dl +0.44 +0.4 1 3.5 mg/dl 8.0 g/dl +0.55 +0.52 5 mg/dl 8.0 g/dl +0.86 +0.77 ALBUMIN (test 4.6 G/DL 3.5-5.0 N code = ALB) BILIRUBIN TOTAL 1.1 MG/DL 0.2-1.3 N Eltrombopag Interference (test code = for Vitros Prod uct TBil, BILT) BuBc: Assa y Eltrombopag Consuelo lyte/ Max Observed Avg. B ias Concentration C oncentration Concentration== ====TBil 7mg/dl TBil/ 1. 2mg/dl +0.23mg.dl +0.2 0mg/dlBuBc 3.5mg/dl Bu/0.8 mg/dl +0.25mg/dl +0.2 4mg/dlBuBc 7 mg/dl Bu/14.2mg /dl +0.38mg/dl +0.2 5mg/dlBuBc 5mg/dl Bc/0mg/d l +0.25mg/dl +0.15mg/dlBuBc 3.5mg/dl Bc/2.8mg/dl +0. 25mg/dl +0.23mg/dl BILIRUBIN DIRECT 0.0 MG/DL 0.0-0.3 N Eltrombopag Interference (test code = for Vitros Prod uct TBil, BILD) BuBc: Assa y Eltrombopag Consuelo lyte/ Max Observed Avg. B ias Concentration C oncentration Concentration== ====TBil 7mg/dl TBil/ 1. 2mg/dl +0.23mg.dl +0.2 0mg/dlBuBc 3.5mg/dl Bu/0.8 mg/dl +0.25mg/dl +0.2 4mg/dlBuBc 7 mg/dl Bu/14.2mg /dl +0.38mg/dl +0.2 5mg/dlBuBc 5mg/dl Bc/0mg/d l +0.25mg/dl +0.15mg/dlBuBc 3.5mg/dl Bc/2.8mg/dl +0. 25mg/dl +0.23mg/dl SGOT/AST (test 120 UNITS/L 17-59 H code = AST) SGPT/ALT (test 141 UNITS/L 0-49 H code = ALT) ALKALINE 73 UNITS/L 38-126 N PHOSPHATASE (test code = ALKP) GLUCOSE BEDSIDE [id number] 02:26:00 Test Item Value Reference Range Interpretation Comments GLUCOSE BEDSIDE TESTING (test code = 84 MG/DL 60-99 N GLUBED) PROTHROMBIN [id number] 02:21:00 Test Item Value Reference Range Interpretation Comments PROTHROMBIN TIME 11.7 SECONDS 9.4-12.7 N PATIENT (test code = PTP) INTERNATIONAL NORMAL 1.1 0.86-1.14 N The INR is to be RATIO (test code = used only for INR) monitoring oral anticoagulantth erap y. INDICATION I NR VALUE ---- ---- ---- -------1. Prophylaxis, de ep venous thrombos is, including high risk surgery. 2.0 - 3.0 2. Prophylaxis, deep venous thrombosis, hip surgery, treatm ent for deep venous thrombosis or pulmonary prevention of systemic emboli sm in patients wit h valvular heart disease, atrial fibrillation, tissue heart va lve, or acute myocar dial infarction. 2.0 - 3.0 3. Traffic Engineer al prosthesis hear t valves, recurre nt systemic emboli sm. 3.0 - 4.5 PTT [id number] 02:21:00 Test Item Value Reference Range Interpretation Comments PTT ACTIVATED (test code = APTT) 32.4 SECONDS 26.2-35.4 N - XR CHEST [id number] 02:10:00 [facility] : 1995 Sex: M Patient Name: GENARO MCKENZIE Unit No: [id number] EXAMS: CPT CODE: [id number] XR CHEST 1V 78842 AP Portable Chest Location Code M12 HISTORY: cough FINDINGS: There are no infiltrates. There are no pleural effusions. There is no pneumothorax. Cardiac silhouette and mediastinum appear within normal limits. IMPRESSION: No active pulmonary findings. at 0210 Reported and signed by: Laxmi Quinones M.D. CC: Blue Stratton MD Technologist: Eloy Patel, RT(R) Transcrpt Date/Tm/Trnsp: 09/14/2022 (209) [id number] Orig Print D/T: S: 09/14/2022 (021) [facility] NAME: GENARO MCKENZIE [address] PHYS: [place] [address] : 1995 AGE: 27 SEX: M LOC: Kathy.ERS PHONE #: [phone] EXAM DATE: 09/14/2022 STATUS: REG ER FAX #: [phone] RADIOLOGY NO: PAGE 1 Signed ReportCBC W/AUTO [id number] 02:07:00 Test Item Value Reference Range Interpretation Comments WHITE BLOOD CELL (test code = 10.1 K/MM3 3.8-9.8 H WBC) RED BLOOD CELL (test code = 4.38 M/MM3 3.95-5.67 N RBC) HEMOGLOBIN (test code = HGB) 13.9 G/DL 12.4-16.7 N HEMATOCRIT (test code = HCT) 42.3 % 35.9-49.5 N MEAN CELL VOLUME (test code = 97 fL 81.7-96.1 H MCV) MEAN CELL HGB (test code = MCH) 31.7 pg 27.6-33.2 N MEAN CELL HGB CONCETRATION 32.9 % 32.9-35.5 N (test code = MCHC) RED CELL DISTRIBUTION WIDTH 12.6 % 12.1-15.2 N (test code = RDW) PLATELET COUNT (test code = 445 K/MM3 129-368 H PLT) MEAN PLATELET VOLUME (test code 9.9 fl 7.4-10.4 N = MPV) NEUTROPHIL % (test code = NT%) 64.3 % 43-75 N IMMATURE GRANULOCYTE % (test 0.3 % 0.0-2.0 N code = IG%) LYMPHOCYTE % (test code = LY%) 21.1 % 14-44 N MONOCYTE % (test code = MO%) 11.0 % 4-13 N EOSINOPHIL % (test code = EO%) 2.6 % 0-6 N BASOPHIL % (test code = BA%) 0.7 % 0-2 N NUCLEATED RBC % (test code = 0.0 % 0-1.0 N NRBC%) NEUTROPHIL # (test code = NT#) 6.50 K/mm3 2.0-7.6 N IMMATURE GRANULOCYTE # (test 0.03 x10 3/uL 0-0.03 N code = IG#) LYMPHOCYTE # (test code = LY#) 2.13 K/mm3 1.0-3.8 N MONOCYTE # (test code = MO#) 1.11 K/mm3 0.1-0.8 H EOSINOPHIL # (test code = EO#) 0.26 K/mm3 0.0-0.2 H BASOPHIL # (test code = BA#) 0.07 K/mm3 0.0-0.2 N NUCLEATED RBC # (test code = 0.00 K/mm3 0.0-0.1 N NRBC#) Basic Metabolic [id number] 16:24:00 Test Item Value Reference Range Interpretation Comments Sodium (test code = 140 mmol/L 933-461 6286-2) Potassium (test code = 4.3 mmol/L 3.5-5.1 2823-3) Chloride (test code = 103 mmol/L 98-107 2075-0) CO2 (test code = 26 mmol/L 21-31 17171747) Urea Nitrogen (test 20.0 mg/dL 7-25 code = 82503067) Creatinine (test code = 1.2 mg/dL 0.7-1.3 23428293) Glucose (test code = 125 mg/dL 70-110 H 62568220) Calcium (test code = 9.4 mg/dL 8.6-10.3 46532391) eGFR If Am 95 See_Comment [Automat ed message] (test code = 81427041) The s ystem which generated this result transmit ike reference range : >=90 mL/min/1.7 3 m2. The reference r wilfrid was not used to interpret this result as normal/abnormal . eGFR If non- Am 82 See_Comment L [Aut omated message] (test code = 03634921) The s ystem which generated this result transmit ike reference range : >=90 mL/min/1.7 3 m2. The reference r wilfrid was not used to interpret this result as normal/abnormal . Anion Gap (test code = 11 mmol/L 02-18 90298172) Lab Interpretation Abnormal (test code = 26047-8) [facility]/[id number] 15:51:00 Test Item Value Reference Range Interpretation Comments WBC (test code = 6690-2) 8.1 K/uL 4.5-12 RBC (test code = 789-8) 5.17 See_Comment [Au tomated message] The system [employer] generated this result transmit ike reference range : 4.60 - 6.20 M/u L. The reference r wilfrid was not used to interpret this result as normal/abnormal . Hemoglobin (test code = 16.1 g/dL 718-7) Hematocrit (test code = 49.1 % 40-54 4544-3) MCV (test code = 787-2) 95.0 fL 82-92 H MCH (test code = 785-6) 31.1 pg 27-31 H MCHC (test code = 786-4) 32.8 g/dL 32-36 RDW (test code = 45.6 fL 35.1-43.9 H 18810-6) Platelet (test code = 437 K/uL 150-400 H 777-3) Mean Platelet Volume 9.2 fL 9.4-12.4 L (test code = 09240-7) Percent NRBC (test code 0.0 % 0-0 = 09926222) Neutrophil (test code = 59.6 % 34-67.9 770-8) Lymphs (test code = 29.6 % 21.8-50 736-9) Monocytes (test code = 8.9 % 5.3-12 5905-5) Eos (test code = 713-8) 0.5 % 0.8-5 L Basos (test code = 1.0 % 0.2-1.2 706-2) Immature Granulocytes 0.4 % 0-0.5 (test code = 89839344) Neutrophils (Absolute) 4.82 K/uL 1.78-5.36 (test code = 49861006) Lymphs (Absolute) (test 2.39 K/uL 1.32-3.57 code = 25078699) Monocytes(Absolute) 0.72 K/uL 0.3-0.82 (test code = 62918566) Eos (Absolute) (test 0.04 K/uL 0.04-0.54 code = 40613462) Baso (Absolute) (test 0.08 K/uL 0.01-0.08 code = 93572004) Immature Grans (Abs) 0.03 K/uL 0-0.03 (test code = 99143332) Absolute NRBC (test code 0.00 K/uL 0-0.11 = 61360993) Lab Interpretation (test Abnormal code = 96837-7) [facility] [id number] 14:30:00 Test Item Value Reference Range Interpretation Comments ALCOHOL, SERUM - RESULT <0.01 See_Comment [Au tomated message] (BKR) (test code = The syste m which 59048926) generated this result transmitted ref erence range: <0.10 g/ dL. The reference range was not used to int erpret this result as normal/abnormal . Lab Interpretation (test Normal code = 02292-0) [facility] [id number] 14:25:00 Test Item Value Reference Range Interpretation Comments Lipase (test code = 18702725) 14 U/L 1182 Lab Interpretation (test code = Normal 54475-8) [facility]prehensive Metab Pnl(Excludes DBIL)2021-04-07 14:25:00 Test Item Value Reference Range Interpretation Comments Sodium (test code = 136 mmol/L 729-680 7715-2) Potassium (test code = 3.9 mmol/L 3.5-5.1 2823-3) Chloride (test code = 91 mmol/L 98-107 L 2075-0) CO2 (test code = 36 mmol/L 21-31 H 77943070) Glucose (test code = 100 mg/dL 70-110 74863521) Calcium (test code = 10.2 mg/dL 8.6-10.3 67837996) Urea Nitrogen (test 11.0 mg/dL 7-25 code = 99958970) Creatinine (test code = 1.2 mg/dL 0.7-1.3 19544080) Alkaline Phosphatase 87 U/L 34-104 (test code = 99971980) ALT (test code = 240 U/L 7-52 H 42094152) AST (test code = 127 U/L 13-39 H 54654173) Total Protein (test 7.8 g/dL 6-8.3 H code = 2885-2) eGFR If non- Am 73 See_Comment L [Aut omated message] (test code = 47954888) The s ystem which generated this result transmit ike reference range : >=90 mL/min/1.7 3 m2. The reference r wilfrid was not used to interpret this result as normal/abnormal . eGFR If Am 88 See_Comment L [Automat ed message] (test code = 58538530) The s ystem which generated this result transmit ike reference range : >=90 mL/min/1.7 3 m2. The reference r wilfrid was not used to interpret this result as normal/abnormal . Albumin (test code = 5.2 g/dL 4.2-5.5 80762-0) Anion Gap (test code = 9 mmol/L 5-16 41289533) Lab Interpretation Abnormal (test code = 60211-1) [facility] CHEST 2 [id number] 13:52:54IMPRESSION: No acute thoracic abnormality. Dictated By: Tiera Granados MD, 04/07/2021 1:48 PM I have reviewed the study and agree with the findings in this report. Signed By: Cheri Eli, 04/07/2021 1:52PM Interface, Rad/Mammog In - 04/07/2021 1:58 PM CDT EXAMINATION: XRAY CHEST 2 VIEWS INDICATION: chest pain COMPARISON: None TECHNIQUE: PA and lateral chest radiographs.FINDINGS:TUBES and LINES: NoneLUNGS: Lungs are well inflated. No consolidations or edema. PLEURA: No pleural effusions or pneumothorax. HEART AND MEDIASTINUM: The cardiac silhouette is normal in size. Theremainder of the mediastinal silhouette is unremarkable.MUSCULOSKELETAL: No focal osseous lesion.SOFT TISSUES: Soft tissues are unremarkable.UPPER ABDOMEN: No free air under the diaphragm.IMPRESSIONIMPRESSION: No acute thoracic abnormality.Dictated By: Tiera Granados MD, 04/07/2021 1:48 PMI have reviewed the study and agree with the findings in this report.Signed By: Vanita, 04/07/2021 1:52 PM[facility]12 LEAD [id number] 11:19:0612 LEAD EKG FOR [facility] Test Date: 5822-58-02Alc Name: GENARO MCKENZIE Department: 5520Patient ID: [id number] Room: Gender: M Parliamentary Counsel: [id number]: 1995 Requested By: RAVINDRA Wright Number: [id number] Reading MD: rian holcomb MeasurementsIntervals [place] Rate: 112 P: 82PR: 118 QRS: 82QRSD: 97 T: 59QT: 316 QTc: 383 Interpretive StatementsSINUS TACHYCARDIA WITH SHORT PRINTERVALABNORMAL RHYTHM ECGElectronically Signed On 04-07-2021 17:29:09 CDT by [facility]
--- NOTE | 2022-10-07 11:19 | RAD REPORT ---
EXAM DESCRIPTION: RAD - Chest Single View - 10/07/2022 10:59 am CLINICAL HISTORY: MALAISE, chest pain COMPARISON: Portable 04/10/2022 TECHNIQUE: AP portable chest image was obtained 10/07/2022 10:59 am . FINDINGS: Lungs are clear. Heart and vasculature are normal. No measurable pleural effusion and no p neumothorax. No acute bony abnormality seen. No acute aortic findings suspected. IMPRESSION: No acute cardiopulmonary process.
[2022-10-07 12:08] LABS: Urine Blood Negative (Negative); Urine Glucose Negative (Negative); Urine Protein Negative (Negative); Urine Specific Gravity 1.025 (1.005-1.030)
[2022-10-07 12:12] LABS: Absolute Lymphocytes (CBC) 2.5 K/uL (0.7-4.9); Hematocrit 44.2 % (39.6-49.0); Lymphocytes % 24.7 % (15.3-44.8); MCV 93.1 fL (80-100); MPV 8.3 fL (7.6-11.3); RBC Red Blood Cell Count 4.75 M/uL (4.33-5.43)
[2022-10-07 12:35] LABS: Barbiturates NEGATIVE (NEGATIVE); Benzodiazepines NEGATIVE (NEGATIVE); Cocaine NEGATIVE (NEGATIVE); METHAMPHETAM POSITIVE (NEGATIVE); Methadone NEGATIVE (NEGATIVE); Opiates NEGATIVE (NEGATIVE); Phencyclidine NEGATIVE (NEGATIVE); THC Cannibis POSITIVE (NEGATIVE)
[2022-10-07 12:38] LABS: Potassium 4.1 mmol/L (3.5-5.1)
[2022-10-07 13:19] LABS: SARS-COV-2 RT PCR NEGATIVE (NEGATIVE)
[2022-10-07] MEDS ORDERED: NA CHLORIDE 0.9% 1,000 ML ONE (13:57)
[2022-10-07] MEDS ORDERED: KETOROLAC 30 MG/ML INJ ONE (13:57)
--- NOTE | 2022-10-07 14:26 | RAD REPORT ---
EXAM DESCRIPTION: RAD - Foot Left 3 View - 10/07/2022 2:08 pm CLINICAL HISTORY: Left Foot pain FINDINGS: No fracture or dislocation is seen.
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
[2022-10-07 17:12] VITALS: TEMP 98.8; O2SAT 100
[2022-10-07 17:22] VITALS: BP 133/88
--- NOTE | 2022-10-09 16:06 | EKG ---
Test Date: 2022-10-07 Test Time: 15:36:44 Warp Dyeing Vat Tender: CASEY MEASUREMENT RESULTS: Intervals: Rate: 73 OH: 122 QRSD: 94 QT: 402 QTc: 442 [place]: P: 31 OH: 122 QRS: 61 T: 35 INTERPRETIVE STATEMENTS: Normal sinus rhythm T wave abnormality, consider anterior ischemia Abnormal ECG Compared to ECG 04/08/2022 06:45:16 T-wave abnormality now present Possible ischemia now present Atrial premature complex(es) no longer present Right-axis deviation no longer present Prolonged QT interval no longer present Electronically Signed On 10-09-22 16:04:43 [employer] by Enoch Rollins
== END 2022-10-07 16:46 | disposition home or self-care (01) ==
LOC: ER 10:16
DX: M79.672 Pain in left foot (principal); Z71.51 Drug abuse counseling and surveillance of drug abuser; Z20.822 Contact with and (suspected) exposure to COVID-19
CPT/HCPCS: 96361; 93005; 85025; 80048; 36415; 80320; 82550; 80329 ×2; 81003; 0240U; 80307; 71045; 73630; 96374; 99284; J7030